=== PATIENT | female | born 1995 | race Asian ===

== ENCOUNTER 2019-05-08 09:14 | Outpatient (CLI) | payer BC ==
--- NOTE | 2019-05-08 09:57 | RAD ---
PA AND LATERAL CHEST: History: Dysphemia. FINDINGS: Heart size and mediastinum are within normal limits. The lungs are clear of infiltrates. No significa nt bony findings. IMPRESSION: No active intrathoracic disease. POS: [facility]
== END 2019-05-08 09:15 | disposition home or self-care (01) ==
LOC: RAD 09:14
PROVIDERS: ATTEND Internal Medicine Critical Care Medicine
DX: R06.00 Dyspnea, unspecified (principal)
CPT/HCPCS: 71046